=== PATIENT | male | born 1985 | race Two or more races ===

== ENCOUNTER 2022-12-25 08:52 | Emergency (ER) | payer MEDICAID | END 2022-12-25 10:06 | disposition left against medical advice (07) | LOC: ER 08:52 | DX: H57.10 Ocular pain, unspecified eye (principal); Z53.21 Procedure and treatment not carried out due to patient leaving prior to being seen by health care provider ==

== ENCOUNTER 2024-07-31 01:52 | Emergency (ER) | payer MEDICAID ==
[~2024-07-31] VITALS: Ht 172.7 cm; Wt 120.0 kg
[2024-07-31 02:40] LABS: Chloride 107 mmol/L (98-107); Potassium 3.7 mmol/L (3.5-5.1); Sodium 138 mmol/L (136-145)
[2024-07-31] MEDS: PANTOPRAZOLE 40 MG/10 ML VIAL INJ IV ONE (02:40)
[2024-07-31 02:41] LABS: Anion Gap 5 (5-15); Calcium 8.7 mg/dL (8.7-10.4); Carbon Dioxide 26 mmol/L (20-30)
[2024-07-31] MEDS: ONDANSETRON HCL 4 MG/2 ML VIAL IV ONE (02:41)
[2024-07-31] MEDS: MAALOX PLUS or MAALOX 30 ML PO ONE (02:41)
[2024-07-31] MEDS: SODIUM CHLORIDE 0.9% 1,000 ML IV ONE (02:43)
[2024-07-31 02:44] LABS: Basophils # (auto) 0 10 ^3/uL (0-0.2); Basophils % (auto) 0.3 % (0.0-2.0); Eosinophils # (auto) 0.3 10 ^3/uL (0-0.8); Eosinophils % (auto) 2.2 % (0.0-7.0); Lymphocytes # (auto) 3.3 10 ^3/uL (0.4-5.4); Lymphocytes % (auto) 28.7 % (10.0-50.0); Mean Corpuscular Hgb Conc. 34.2 g/dL (32.0-36.0); Mean Corpuscular Volume 87.8 fL (80.0-100.0); Monocytes # (auto) 0.7 10 ^3/uL (0-1.3); Monocytes % (auto) 6.1 % (0.0-12.0); Neutrophils # (auto) 7.2 10 ^3/uL (1.6-8.6); Neutrophils % (auto) 62.7 % (37.0-80.0); Nucleated Red Blood Cells % 0.1 %; Platelet Count (auto) 245 10^3/uL (140-450); Red Blood Cells 4.68 10^6/uL (4.5-5.90); White Blood Cell 11.6 10^3/uL (4.4-10.8)
[2024-07-31 02:46] LABS: BUN/Creatinine Ratio 8.6 (10.0-20.0); Blood Urea Nitrogen 8 mg/dL (9-23); Glucose 100 mg/dL (74-106)
[2024-07-31 03:08] VITALS: PULSE 80; RESP 17; O2SAT 96
[2024-07-31 05:44] VITALS: BP 104/69; PULSE 75; RESP 15; TEMP 98.8; O2SAT 97
== END 2024-07-31 05:46 | disposition home or self-care (01) ==
LOC: EDBD 01:52 → ER 01:52
DX: R07.89 Other chest pain (principal); F41.9 Anxiety disorder, unspecified; F32.A Depression, unspecified; F12.90 Cannabis use, unspecified, uncomplicated
CPT/HCPCS: 36415; 71045; 80048; 84484; 85025; 93005; 96361; 96374; 96375; 99285; J2405; J2470; J7030